=== PATIENT | female | born 1960 | race Caucasian/White ===

== ENCOUNTER → 2019-07-28 | Outpatient (CLI) | payer MEDICAID ==
[2019-07-28 11:54] LABS: Basophils % (A) 0 %; Eosinophils # (A) 0.1 k/uL (0-0.7); Eosinophils % (A) 1 %; HGB 11.8 gm/dL (11.4-16.0); Lymphocytes # (A) 2.1 k/uL (1.0-4.8); Lymphocytes % (A) 44 %; MCH 30.4 pg (25.0-35.0); MCHC 32.8 g/dL (31.0-37.0); MCV 92.7 fL (80.0-100.0); Mean Platelet Volume 7.3; Monocytes # (A) 0.3 k/uL (0-1.0); Monocytes % (A) 7 %; Neutrophils # (A) 2.2 k/uL (1.3-7.7); Neutrophils % (A) 45 %; Platelet Count 233 k/uL (150-450); RBC 3.88 m/uL (3.80-5.40); RDW 12.8 % (11.5-15.5); WBC 4.8 k/uL (3.8-10.6)
[2019-07-28 12:06] LABS: Albumin 4.3 g/dL (3.5-5.0); Calcium 10.1 mg/dL (8.4-10.2); Potassium 3.8 mmol/L (3.5-5.1)
[2019-07-28 12:08] LABS: INR 0.9 (<1.2); Partial Thromboplastin Time 23.7 sec (22.0-30.0); Prothrombin Time 9.8 sec (9.0-12.0)
[2019-07-28 12:25] LABS: Appearance,Urine Clear (Clear); Bilirubin,Urine Negative (Negative); Blood,Urine Negative (Negative); Color,Urine Yellow; Glucose,Urine (UA) Negative (Negative); Ketones,Urine Negative (Negative); Leukocyte Esterase,Urine Small (Negative); Nitrite,Urine Negative (Negative); Protein,Urine Negative (Negative); RBC,Urine <1 /hpf (0-5); Specific Gravity,Urine 1.012 (1.001-1.035); Squamous Epithelial Cell,Urine 1 /hpf (0-4); Urobilinogen,Urine <2.0 mg/dL (<2.0); WBC,Urine 5 /hpf (0-5)
--- NOTE | 2019-07-29 00:36 | XR ---
EXAMINATION TYPE: XR chest 2V DATE OF EXAM: 07/28/2019 COMPARISON: 06/18/2017 HISTORY: Preop screening TECHNIQUE: Frontal and lateral views of the chest are obtained. FINDINGS: Heart and mediastinum are within normal limits. Lungs are clear. Diaphragm is normal. Bony thorax is intact. Pulmonary vascularity is normal. IMPRESSION: No active cardiopulmonary disease. No change.
== END | disposition home or self-care (01) ==
LOC: LABPAT 10:55
PROVIDERS: ATTEND Orthopaedic Surgery Orthopaedic Surgery of the Spine
DX: Z01.818 Encounter for other preprocedural examination (principal); Z01.812 Encounter for preprocedural laboratory examination; M43.10 Spondylolisthesis, site unspecified; M54.10 Radiculopathy, site unspecified
CPT/HCPCS: 36415; 71046; 80048; 81001; 82040; 85025; 85610; 85730; 87070

== ENCOUNTER 2019-08-08 10:43 | Inpatient (IN) | payer MEDICAID ==
[2019-08-02 11:16] VITALS: BMI 43.6
[~2019-08-08 10:43] MED LIST: BACITRACIN 50,000 UNIT, POLYMYXIN B 500,000 UNIT in SODIUM CHLORIDE 0.9% IRRIGATIO 1,00... IRRIGATION ONE; DEXAMETHASONE SOD PHOSPHATE 10 MG/ML 1 ML VIAL IV ONE; MIDAZOLAM 2 MG/2 ML VIAL IV PRN; ONDANSETRON 4 MG/2 ML VIAL IVP ONE; SCOPOLAMINE 1.5MG/72HR PATCH TRANSDERM ONE
[2019-08-08] MEDS: LACTATED RINGERS 1,000 ML IV SCH (11:28)
[2019-08-08 11:53] LABS: Glucose,Whole Blood 101 mg/dL (75-99)
[2019-08-08] MEDS ORDERED: ROCURONIUM BROMIDE 10 MG/ML 10 ML VIAL IV ONE (13:07)
[2019-08-08] MEDS ORDERED: LIDOCAINE 1% INJ 10MG/ML (20 ML MDV) ONE (13:07)
[2019-08-08] MEDS ORDERED: LACTATED RINGERS 1,000 ML BAG IV ONE (13:07)
[2019-08-08] MEDS ORDERED: fentaNYL (PF) 50 MCG/ML 2 ML AMP ONE (13:07)
[2019-08-08] MEDS ORDERED: MIDAZOLAM 2 MG/2 ML VIAL ONE (13:07)
[2019-08-08] MEDS ORDERED: NEOSTIGMINE 1 MG/ML 10 ML VIAL ONE (13:07)
[2019-08-08] MEDS ORDERED: GLYCOPYRROLATE 0.2 MG/ML 2 ML VIAL ONE (13:07)
[2019-08-08] MEDS ORDERED: HEPARIN SODIUM,PORCINE 10,000 UNIT/ML 1 ML VIAL ONE (13:07)
[2019-08-08] MEDS ORDERED: FUROSEMIDE 10 MG/ML 2 ML VIAL ONE (13:07)
[2019-08-08] MEDS ORDERED: .MORPHINE SULFATE (INJ) 10 MG/ML SYRINGE ONE (13:07)
[2019-08-08] MEDS ORDERED: SUCCINYLCHOLINE CHLORIDE 100 MG/5 ML SYR IV ONE (13:07)
[2019-08-08] MEDS ORDERED: PROPOFOL 10 MG/ML 20 ML VIAL IV ONE (13:07)
[2019-08-08] MEDS ORDERED: LIDOCAINE 0.5%-EPI 1:200,000 50 ML VIAL SQ ONE (13:09)
[2019-08-08] MEDS ORDERED: GELATIN SPONGE,ABSORB (LARGE) 1 EACH SPONGE TOPICAL ONE (13:09)
[2019-08-08] MEDS ORDERED: THROMBIN (BOVINE) 5,000 UNIT VIAL TOPICAL ONE (13:09)
[2019-08-08] MEDS ORDERED: LACTATED RINGERS 1,000 ML IV ONE ×2 (15:00→17:33)
[2019-08-08] MEDS ORDERED: HYDROmorphone 1 MG/ML 1 ML SYRINGE IVP PRN (17:46)
[2019-08-08] MEDS ORDERED: BENZOCAINE/MENTHOL LOZENG 1 EACH LOZENGE MUCOUS MEM PRN (17:46)
[2019-08-08] MEDS ORDERED: MAGNESIUM HYDROXIDE 2,400 MG/10 ML CUP PO PRN (17:46)
[2019-08-08] MEDS ORDERED: ONDANSETRON 4 MG/2 ML VIAL IVP PRN (17:46)
[2019-08-08] MEDS ORDERED: HYDROcodone/APAP 5-325MG 1 EACH TAB PO PRN (17:46)
--- NOTE | 2019-08-08 17:46 | P.OP ---
Date of Procedure: 08/08/19 Preoperative Diagnosis: spinal stenosis L1-2 L2-3 L3 4, adjacent level degeneration, history of prior fusion L45 L5-S1, neurogenic claudication, lower extremity radiculopathy, low back pain Postoperative Diagnosis: same Procedure(s) Performed: minimally invasive decompression and fusion L12 L2-3 L3 4 Posterior lateral decompression and fusion L1 to L2 through L3 4 Transforaminal interbody fusion L3 4 for a 360 fusion Discectomy for decompression L3 4 Laminectomy decompression L2 S1 to L2-3 and L3 4 Removal of hardware L4 L5-S1 Evaluation of fusion L4 5 L5-S1 with findings of solid fusion Extension of fusion L1 to S1 Harvesting of allograft bone graft local Harvesting of bone marrow aspirate Use of computer navigation guidance for screw placement Anesthesia: GETA Pathology: none sent Condition: stable Description of Procedure: DESCRIPTION OF PROCEDURE(S): BRIEF OPERATIVE NOTE Preoperative Diagnosis: spinal stenosis L1-2 and L2-3 and L3 4, adjacent level degeneration L3 4, history of prior fusion L45 L5-S1, herniated nucleus pulposis L3 4, lower extremity radiculopathy, neurogenic claudication, low back pain, degenerative disc disease, Postoperative Diagnosis:same Procedure: minimally invasive decompression and fusion L12 L2-3 L3 4 Posterior lateral decompression and fusion L1 to L2 through L3 4 Transforaminal interbody fusion L3 4 for a 360 fusion Discectomy for decompression L3 4 Laminectomy decompression L2 S1 to L2-3 and L3 4 Removal of hardware L4 L5-S1 Evaluation of fusion L4 5 L5-S1 with findings of solid fusion Extension of fusion L1 to S1 Harvesting of allograft bone graft local Harvesting of bone marrow aspirate Use of computer navigation guidance for screw placement use of bone graft extenders Surgeon: Dr. Romo Saw Handle Assembler: Herve Hernandez is present throughout the entire the case persistence during positioning, dissection, exposure, visualization, and all crucial elements of the case as well as closure. Anesthesia: General anesthesiaper Dr. Johnson Estimated blood loss:approximately 300 mL with 69 given back through Cell Saver Complications: None apparent Components implanted:K2M minimally invasive Pelham pedicle screw system with use of 6.5 and 5.5 mm screws with a 150 mm jeffrey bilaterally and 1 Ralston interbody cage with 10 mL of bio4 bone graft and 30 mL of DBX bone fibers to supplement local autogenous bone graft and bone marrow aspirate Disposition: To recovery room in good stable condition. OPERATIVE INDICATIONS The patient has had long-standing issues in their lower back and lower extremities. past she had undergone decompression and fusion L4 5 L5-S1 for her spinal stenosis with lower extremity radiculopathy and neurogenic claudication. She did very well with that procedure however over the past several months she has been developing worsening symptoms at her back and lower extremities. She was found have adjacent level degeneration with evidence of disc herniation and further stenosis at L1-2 L2-3 and L3 4 above her prior fusion. Her prior fusion. Be stable and intact. Her symptoms correlated with her new changes at Tootie her lumbar spine above her prior fusion.The patient has been through conservative treatment. she is not having any prolonged benefit despite aggressive conservative treatment. We discussed various treatment options including surgery, and the patient wishes to proceed with surgery We discussed the risk, patient's alternatives and benefits of surgery including but not limited to, risk of bleeding risk of infection, risk of need for further surgery, risk of decreased, loss of motion, muscle function, malunion nonunion, hardware failure, nerve damage, paralysis, heart attack, blindness and . OPERATIVE SUMMARY After discussing all the risks, patient alternatives and benefits at length, the patient elected to proceed with surgical intervention, signed informed consent, and presented for their procedure. The patient was seen and examined in the preoperative holding area and the surgical site was marked. The patient was given antibiotics and brought to the operating room. The patient was sedated and intubated by anesthesia in standard fashion. The patient was positioned on to the operating room table in a prone position on the appropriate frame which was well-padded and well molded. We were careful to pad any bony prominences and pressure points. We were careful to maintain the patient's cervical spine and good neutral alignment and position throughout. The patient was prepped and draped in a normal standard fashion. An appropriate timeout and keystone protocol performed. We were able to proceed with the surgery. The local wound area was infiltrated with local anesthetic. we were able to identify her prior incision sites. I was able utilize C-arm guidance as well as computer-assisted navigation deviceto establish appropriate position over the pedicles bilaterally at the a ppropriate levelsat L1 2 and 3. With the appropriate levels confirmed was able to make small stab incisions over the appropriate pedicle sites bilaterallyover L1 to L3. Utilizing C-arm in his house able to establish a computer navigatedJamshidi needle over the lateral aspect of the pedicle and advanced the trocar into the pedicle being careful not to breech superiorly inferiorly medially or laterally. Position was confirmed regularly with AP and lateral images on C-arm. I was able to establish the trocar into the pedicle appropriately into the posterior aspect of the vertebral body bilaterally at the appropriate levels. This was done at each of the pedicle positions and each of the vertebraeat L1-L2 and L3 bilaterally. at L1 I was able to withdraw approximately 30 mL of bone marrow aspirate for use and supplementation of the bone graft later in the case.I was able place the guidewire into the trocar and into the vertebral body appropriately under C-arm guidance. Dissection was t aken down over the wire to the appropriate starting position for the screw placed. The appropriate length screw was chosen, threaded over the guidewire and screwed appropriately into the pedicle and vertebral body under C-arm guidance in excellent alignment and position with good bony purchase. This is done at each of the screw sites at the appropriate levelsfrom L1 to L3 bilaterally. With the screws intact I extended the incision to connect the screw hole sites on the left. I dissected down to establish access over the pars and lamina to the base of the spinous process. I was able to expose the facet joint. The capsule the facet was taken down and showed some facet arthrosis at each of the levels particularly at L3 4at the joint. I was able to use a combination of curettes and Kerrison rongeurs and a high-speed drill to take down the facet joint and do a facetectomy. Partial laminectomy was also performed. I was able get excellent foraminal decompression and central decompression with undermining across midline to perform a laminectomy centrally and contralaterally. for the access to the disc space at L3 4 and remove the jeffrey from the screw heads at L4- L5 and S1. I was able to expose over the screw heads at L4 5 and S1 and remove the Screws appropriately. The construct was checked and the screws were found to be stable and there was no motion between the screws. I decided to leave the screws intact. I was able gain further access to the transfemoral space. As able get good central decompression. The ligamentum flavum was taken down to further decompress centrally and at bilateral neural foramen. I was able to expose the disc space and visualize the traversing nerve root. Note was made of some disc protrusion at the level causing further compression of the nerve root. I was able to establish a annulotomy at the appropriate level protecting soft tissue and neural structures. Note was made of some disc desiccation at the disc. at L3 4I performed a complete discectomy with accommodation of curettes and rasps and scrapers. I was able get good endplate preparation at the disc space. I sized for the appropriate size interbody spacer protecting the soft tissue and neural structures. The wound was copiously irrigated and suctioned dry. There is no evidence of any dural tear or leak. I was able to pack the disc space with local autogenous bone graft as well as a small amount of bone graft which was also placed into the interbody cage itself. Protecting the soft tissue structures and neural structures I was able place the interbody cage in good alignment and good position with good fit and fill at the interbody space. His issues was confirmed with C-arm guidance.this was done at L3 4. I did not feel we had to perform a interbody fusion at L1-2 or L2-3 but he decompression with posterior lateral fusion would be appropriate. I performed a laminotomy at L1-2 as well as L2-3 to get good central decompression at each level. There is no evidence of any dural tear or leak. Good hemostasis maintained. There is no evidence of any dural tear or leak. The wound was irrigated and suctioned dry. With the hardware intact, intraoperative C-arm imaging was again taken which showed good alignment and position of the hardware at the appropriate levelsfrom L1 to S1 bilaterally. I remove the Screws on the bilateral sides to expose the screw heads from L1 to S1 bilaterally.We were then able to measure, contour and place the rods and appropriate hardware bilaterally. I was able to place capcrews, tighten them down, and torque them with the torque screwdriver appropriately. With this intact I was able to place the local autogenous bone graft with additional bone graft enhancer as necessary into the posterior lateral gutters over the decorticated transverse processesfrom L1 to L4. The remainder of the bone graft was placed over the facet joint on the contralateral side after taking down the facet joint capsule. With the bone graft intact, a stable construct, and good decompression at the appropriate levels, we were able to proceed with closure. Good hemostasis was maintained. There is no evidence of dural tear or leak. The fascia was closed for a watertight closure. he subcuticular tissue was closed with absorbable suture. The wound was cleaned and dried and dressed with the appropriate dressing. The drapes were broken down. The patient was gently rolled back onto their hospital bed being careful to maintain their cervical spine and good neutral alignment and position. They were woken up by anesthesia, extubated, and brought to the recovery room in good stable condition. The patient will be admitted to the hospital for appropriate postoperative care, medical management and monitoring. We will continue to follow them closely about the postoperative course.
[2019-08-08] MEDS ORDERED: BENZONATATE 100 MG CAP PO PRN (17:49)
[2019-08-08] MEDS ORDERED: ALBUTEROL NEBULIZED 2.5 MG/3 ML INHALATION PRN (17:49)
[2019-08-08] MEDS ORDERED: traMADol 50 MG TAB PO PRN (17:49)
[2019-08-08] MEDS ORDERED: ALBUTEROL INHALER 60 PUFF/8 GM INHALER INHALATION PRN (17:49)
[2019-08-08] MEDS: HYDROmorphone 0.5 MG/0.5 ML SYRINGE IVP PRN ×3 (18:07→23:17)
--- NOTE | 2019-08-08 20:39 | P.CONS ---
History of Present Illness - Reason for Consult Consult date: 08/08/19 post operative medical management Requesting physician: Jose Romo - Chief Complaint scheduled lower back surgery for spinal decompression and fusion - History of Present Illness 59 year old female with history of mild intermittent asthma, hypertension , OA, GERD , and Ig G deficiency patient comes in today for scheduled lower back surgery due to chronic low back pain refractory to conservative measures. patient tolerated procedure well, she is seen in the immediate post operative period , no observed post operative complications. she reports some lower back discomfort, but otherwise denies any chest pain or trouble breathing,. she has not had anything to eat yet, but does not feel like eating at this time due to nausea. she has a monterroso cath in place. family at bed side with her. she currently feels tired and wants to sleep. Review of Systems Pertinent positives as noted in HPI. All other systems were reviewed and are negative Past Medical History Past Medical History: Asthma, GERD/Reflux, Hypertension, Osteoarthritis (OA), Pneumonia, Skin Disorder Additional Past Medical History / Comment(s): varicose veins, sponylolisthesis, degenerative disks, herniated disks, rosacea, immunoglobulin G deficient-IIVIG infuision, hx low iron-has had iron infusion every other month, History of Any Multi-Drug Resistant Organisms: None Reported Past Surgical History: Back Surgery, Breast Surgery, Section, Cholecystectomy, Tonsillectomy Additional Past Surgical History / Comment(s): natasha breast biopsy,has surgery to remove blood clot from breast after a biopsy, epidural pain injections, lower lumbar fusion, colonoscopy, EGD, oral surgery, Past Anesthesia/Blood Transfusion Reactions: Previous Problems w/ Anesthesia, Postoperative Nausea & Vomiting (PONV) Additional Past Anesthesia/Blood Transfusion Reaction / Comm: was "very loopy" after cholecystectomy Smoking Status: Never smoker - Past Family History Mother Family Medical History: Cancer Additional Family Medical History / Comment(s): ovarian/breast Father Family Medical History: Cancer Additional Family Medical History / Comment(s): skin Son(s) Family Medical History: Cancer Additional Family Medical History / Comment(s): Hodgkins lymphoma Sister(s) Family Medical History: Cancer Additional Family Medical History / Comment(s): childhood Medications and Allergies Home Medications Medication Instructions Recorded Confirmed Type Albuterol Inhaler [Ventolin Hfa 1 - 2 puff INHALATION RT-Q6H PRN 06/23/17 08/08/19 History Inhaler] Albuterol Nebulized [Ventolin 2.5 mg INHALATION RT-Q6H PRN 06/23/17 08/08/19 History Nebulized] Mateo/D3/Mag11/Zinc/Senior Systems Engineer/Vishnu/Bor 1 tab PO HS 06/23/17 08/08/19 History [Caltrate 600+D Plus Tablet] Cetirizine HCl [Zyrtec] 10 mg PO DAILY 06/23/17 08/08/19 History Coratin 1 tab PO BID 06/23/17 08/08/19 History Fluticasone/Salmeterol [Advair 1 puff INHALATION BID 06/23/17 08/08/19 History 250-50 Diskus] Gabapentin [Neurontin] 600 mg PO HS 06/23/17 08/08/19 History Ibuprofen [Motrin] 800 mg PO Q6H PRN 06/23/17 08/08/19 History Lansoprazole 30 mg PO BID 06/23/17 08/08/19 History Lisinopril-Hctz 10-12.5 mg 1 tab PO QAM 06/23/17 08/08/19 History [Zestoretic 10-12.5] Multivitamins, Thera [Multivitamin 1 tab PO DAILY 06/23/17 08/08/19 History (formulary)] Sertraline [Zoloft] 100 mg PO HS 06/23/17 08/08/19 History traMADol HCL [Ultram] 50 mg PO BID PRN 06/23/17 08/08/19 History Benzonatate [Tessalon Perles] 200 mg PO TID PRN 08/02/19 08/08/19 History Orthovisc Injections +Steroids 1 injection IJ DIRECTED 08/02/19 08/08/19 History Allergies Allergy/AdvReac Type Severity Reaction Status Date / Time adhesive tape Allergy "rips skin" Verified 08/08/19 11:03 Penicillins Allergy Rash/Hives Verified 08/08/19 11:03 tetracycline Allergy Rash/Hives Verified 08/08/19 11:03 bandaid Allergy peels skin Uncoded 08/08/19 11:03 off Physical Exam Vitals: Vital Signs Temp Pulse Resp BP Pulse Ox 08/08/19 19:03 59 L 18 127/62 100 08/08/19 18:45 65 18 124/65 100 08/08/19 18:30 70 18 122/59 100 08/08/19 18:15 55 L 18 120/60 100 08/08/19 18:00 98 F 71 18 135/62 96 08/08/19 11:17 98.4 F 56 L 19 156/73 96 Intake and Output 08/08/19 08/08/19 08/08/19 06:59 14:59 22:59 Intake Total 1051 1300 Output Total 850 Balance 1051 450 Intake: IV 1051 1300 Output: Urine 650 Estimated Blood Loss 200 Other: Weight 113.398 kg Constitutional: No acute distress, conversant, pleasant, sleepy easily arousable Eyes: Anicteric sclerae, moist conjunctiva, Pupils equal round reactive to light ENMT: NC/AT Oropharynx clear, no erythema, exudates Neck: Supple, FROM, no masses, or JVD No carotid bruits No thyromegaly Lungs: Clear to auscultation Clear to percussion Normal respiratory effort, no accessory muscle use Cardiovascular: Heart regular in rate and rhythm, No murmurs, gallops, or rubs No peripheral edema Abdominal: Soft Nontender, no guarding, rebound or rigidity Abdomen moving with respiration Normoactive bowel sounds No hepatomegaly, No splenomegaly No palpable mass No abdominal wall hernia noted Skin: Normal temperature, tone, texture, turgor No induration No subcutaneous nodules No rash, lesions No ulcers Extremities: No digital cyanosis No clubbing Pedal pulses intact and symmetrical Radial pulses intact and symmetrical No calf tenderness Psychiatric: Alert and oriented to person, place and time Appropriate affect fair judgment Neuro limited exam for muscle strength patient feels tired postoperatively and reporting some low back discomfort wasn't willing to test the strength of her lower legs due to fear of pain. She is moving her upper extremities freely Sensation to light touch grossly present throughout Cranial nerves II-XII grossly intact No focal sensory deficits Lymphatics: no palpable cervical or supraclavicular , or inguinal lymph nodes Monterroso catheter in place SCDs bilateral lower extremities Results Labs: Abnormal Lab Results - Last 24 Hours (Table) 08/08/19 Range/Units 11:34 POC Glucose (mg/dL) 101 H (75-99) mg/dL Assessment and Plan Assessment: 59-year-old female with history of mild intermittent asthma,hypertension GERD, also arthritis, medical billing G deficiency Comes in for scheduled low back surgery tolerated procedure well denies any chest pain or trouble breathing in the immediate postoperative period Medicine consultative to assist in medical managementpostoperatively Plan: chronic low back pain, s/p lumbar spine decompression POD #zero tolerated procedure well management per orthopedics mild intermittent asthma, well controlled resume inhalers PRN duoneb encouraged to use incentive spirometry hypertension , controlled resume home meds GERD PPI Ig G deficiency OP follow up check CBC and BMP in AM monitor vital signs breathing treatment as needed incentive spirometry encourage PO intake DC monterroso cath in AM , monitor urine output pain control DVT PPX, mechanical due to spinal surgery Thank you for allowing us to participate in the care of this patient. Do not hesitate to contact us with questions. Someone can be reached from the [facility] hospitalist group at all hours of the day at [phone].
[2019-08-08] MEDS: GABAPENTIN 300 MG CAP PO SCH (21:06)
[2019-08-08] MEDS: PANTOPRAZOLE 40 MG TABLET PO SCH (21:07)
[2019-08-08] MEDS: SERTRALINE 100 MG TAB PO SCH (21:07)
[2019-08-08] MEDS: HYDROcodone/APAP 5-325MG 1 EACH TAB PO PRN (21:08)
[2019-08-08] MEDS: CALCIUM CARB-MAG CARB-FOLIC 1 EACH TAB PO SCH (21:16)
[2019-08-09] MEDS: SODIUM CHLORIDE 0.9% 1,000 ML IV SCH ×2 (00:17→07:55)
[2019-08-09] MEDS: SYMBICORT 80-4.5 MCG INHALER INHALATION SCH ×3 (02:03→20:09)
[2019-08-09] MEDS: HYDROcodone/APAP 5-325MG 1 EACH TAB PO PRN ×6 (02:32→23:17)
[2019-08-09] MEDS: HYDROmorphone 0.5 MG/0.5 ML SYRINGE IVP PRN ×5 (04:04→21:33)
[2019-08-09] MEDS: LACTATED RINGERS 1,000 ML IV SCH (04:37)
--- NOTE | 2019-08-09 07:07 | FL ---
EXAMINATION TYPE: FL guidance operating room, XR lumbar spine 2 or 3V DATE OF EXAM: 08/08/2019 CLINICAL HISTORY: Low back pain. Fluoroscopic documentation during minimally invasive lumbar fusion TECHNIQUE: Fluoroscopy. COMPARISON: None. FINDINGS: Fluoroscopic guidance was provided during pain relief procedure performed by Dr. Romo. A total of 40 seconds of fluoroscopic time was utilized during the procedure and then spot images are acquired. Images acquired shows heart replacement of the lumbar spine at multiple levels. IMPRESSION: As Above.
[2019-08-09 07:24] LABS: Basophils % (A) 0 %; Eosinophils # (A) 0.1 k/uL (0-0.7); Eosinophils % (A) 1 %; HCT 34.6 % (34.0-46.0); HGB 11.2 gm/dL (11.4-16.0); Lymphocytes # (A) 0.9 k/uL (1.0-4.8); Lymphocytes % (A) 10 %; MCH 30.9 pg (25.0-35.0); MCHC 32.5 g/dL (31.0-37.0); MCV 94.9 fL (80.0-100.0); Mean Platelet Volume 7.6; Monocytes # (A) 0.6 k/uL (0-1.0); Monocytes % (A) 6 %; Neutrophils # (A) 7.8 k/uL (1.3-7.7); Neutrophils % (A) 83 %; Platelet Count 250 k/uL (150-450); RBC 3.64 m/uL (3.80-5.40); RDW 13.2 % (11.5-15.5); WBC 9.5 k/uL (3.8-10.6)
[2019-08-09 07:34] LABS: African American GFR (CKD) >90 (>60 ml/min/1.73 sqM); Anion Gap 6 mmol/L; Blood Urea Nitrogen 16 mg/dL (7-17); Calcium 8.6 mg/dL (8.4-10.2); Carbon Dioxide 28 mmol/L (22-30); Chloride 101 mmol/L (98-107); Glucose 127 mg/dL (74-99); Non-African American GFR(CKD) 84 (>60 ml/min/1.73 sqM); Potassium 4.1 mmol/L (3.5-5.1); Sodium 135 mmol/L (137-145)
[2019-08-09] MEDS: LISINOPRIL-HCTZ 10-12.5 MG 1 EACH TAB PO SCH (07:54)
[2019-08-09] MEDS: SENNOSIDES-DOCUSATE SODIUM 1 EACH TAB PO SCH (07:56)
[2019-08-09] MEDS: LORATADINE 10 MG TAB PO SCH (07:56)
[2019-08-09] MEDS: PANTOPRAZOLE 40 MG TABLET PO SCH ×2 (07:56→17:36)
[2019-08-09] MEDS: MULTIVITAMINS, THERA 1 EACH TAB PO SCH (07:56)
--- NOTE | 2019-08-09 10:54 | P.PN ---
Progress Note - Text Progress Note Date: 08/09/19 Postoperative day #1 Patient is seen and examined today at bedside. The patient has some pain around the surgical site as expected. She has been able to be up out of bed to a chair this morning for an hour. She still feels her legs are doing well. Pain is being controlled with medication, though there is still regular pain in her back around the surgery site as expected. Physical Exam Afebrile with stable vital signs Abdomen is soft nontender. Chest has good excursion deep and space expiration The incision site is clean dry and intact. No erythema there is no purulence. There was some drainage into her dressing at her lumbar spine overnight there is no purulence. She has sustained dorsiflexion plantar flexion and EHL intact. Extremities have not had neurologic change from prior to surgery. Calves and thighs were soft nontender without evidence of DVT. Assessment/Plan Postoperative day #1 status post decompression and fusion L1-2 L2-3 and L3 4 for adjacent level degeneration spinal stenosis with prior fusion from L4 to S1 Patient is progressing as expected from the surgery. She has been able to get up out of bed which is encouraging. She is tolerating her diet adequately. We will continue to increase the patient's mobilization with therapy. Tomorrow we can take down the dressing and do a new dry dressing change. We will continue pain control with oral or IV medications. We'll continue to follow patient closely.
[2019-08-09] MEDS ORDERED: CALCIUM CARBONATE 500 MG CHEWABLE PO PRN (12:11)
[2019-08-09] MEDS: GABAPENTIN 300 MG CAP PO SCH (20:13)
[2019-08-09] MEDS: SERTRALINE 100 MG TAB PO SCH (20:13)
[2019-08-09] MEDS: CALCIUM CARB-MAG CARB-FOLIC 1 EACH TAB PO SCH (20:13)
--- NOTE | 2019-08-09 20:43 | P.PN ---
Subjective Progress Note Date: 08/09/19 (delayed charting seen at ) Principal diagnosis: back pain Patient is a 59-year-old female past medical history of mild intermittent asthma, hypertension, osteoarthritis, GERD, and IgG deficiency who presented for elective lumbar laminectomy, decompression, and fusion. She underwent procedure on 08/08 and tolerated this well. Patient seen and examined at bedside. She complains of some worsening of her chronic acid reflux symptoms. She denies any overt chest pain or shortness of breath. Pain is currently controlled that she did have significant amounts of pain on standing. Objective - Vital Signs Vital signs: Vital Signs Temp 98.7 F 08/09/19 19:59 Pulse 70 08/09/19 19:59 Resp 16 08/09/19 19:59 BP 131/55 08/09/19 19:59 Pulse Ox 96 08/09/19 19:59 Intake & Output 08/09/19 08/09/19 08/10/19 06:59 18:59 06:59 Intake Total 210 Output Total 1200 Balance 210 -1200 Weight 113.398 kg Intake: Intake, IV Titration 210 Amount Sodium Chloride 0.9% 1, 210 000 ml @ 75 mls/hr IV . [id number] Rx#:[id number] Output: Urine 1000 Stool 200 Other: Voiding Method Indwelling Catheter Indwelling Catheter # Voids 600 - Exam General: non toxic, no distress, appears at stated age Derm: warm, dry Head: atraumatic, normocephalic, symmetric Eyes: EOMI, no lid lag, anicteric sclera Cardiovascular: S1S2 reg, no murmur, positive posterior tibial pulse bilateral, Lungs: Decreased breath sounds bilateral, no rhonchi, no rales , no accessory muscle use Abdominal: soft, nontender to palpation, no guarding, no appreciable organomegaly Ext: no gross muscle atrophy, no edema, no contractures Psych: Alert, oriented, appropriate affect - Labs CBC & Chem 7: 08/09/19 07:08 08/09/19 07:08 Labs: Abnormal Lab Results - Last 24 Hours (Table) 08/09/19 08/09/19 Range/Units 07:08 07:08 RBC 3.64 L (3.80-5.40) m/uL Hgb 11.2 L (11.4-16.0) gm/dL Neutrophils # 7.8 H (1.3-7.7) k/uL Lymphocytes # 0.9 L (1.0-4.8) k/uL Sodium 135 L (137-145) mmol/L Glucose 127 H (74-99) mg/dL Assessment and Plan Assessment: Patient is a 59 yo CF s/p decompression and fusion of the lumbar spine. Management per ortho spine. Mild intermittent asthma -Continue with Symbicort and as needed albuterol Hypertension -controlled -Continue with lisinopril, hydrochlorothiazide -Follow blood pressures GERD -Continue twice a day PPI -Tums added IgG deficiency -Outpatient follow-up
[2019-08-10] MEDS: HYDROmorphone 0.5 MG/0.5 ML SYRINGE IVP PRN ×5 (01:54→20:04)
[2019-08-10] MEDS: SODIUM CHLORIDE 0.9% 1,000 ML IV SCH ×3 (02:55→20:04)
[2019-08-10] MEDS: LACTATED RINGERS 1,000 ML IV SCH (04:47)
[2019-08-10] MEDS: HYDROcodone/APAP 5-325MG 1 EACH TAB PO PRN ×5 (05:04→22:03)
[2019-08-10] MEDS: MULTIVITAMINS, THERA 1 EACH TAB PO SCH (07:25)
[2019-08-10] MEDS: SENNOSIDES-DOCUSATE SODIUM 1 EACH TAB PO SCH (07:25)
[2019-08-10] MEDS: PANTOPRAZOLE 40 MG TABLET PO SCH ×2 (07:25→18:02)
[2019-08-10] MEDS: LORATADINE 10 MG TAB PO SCH (07:25)
[2019-08-10] MEDS: LISINOPRIL-HCTZ 10-12.5 MG 1 EACH TAB PO SCH (07:25)
[2019-08-10 08:18] LABS: African American GFR (CKD) >90 (>60 ml/min/1.73 sqM); Anion Gap 6 mmol/L; Blood Urea Nitrogen 9 mg/dL (7-17); Calcium 8.5 mg/dL (8.4-10.2); Carbon Dioxide 28 mmol/L (22-30); Chloride 102 mmol/L (98-107); Glucose 101 mg/dL (74-99); Non-African American GFR(CKD) >90 (>60 ml/min/1.73 sqM); Potassium 3.8 mmol/L (3.5-5.1); Sodium 136 mmol/L (137-145)
[2019-08-10 08:20] LABS: HCT 32.9 % (34.0-46.0); HGB 10.9 gm/dL (11.4-16.0); MCH 31.3 pg (25.0-35.0); MCHC 33.2 g/dL (31.0-37.0); MCV 94.3 fL (80.0-100.0); Mean Platelet Volume 7.8; Platelet Count 235 k/uL (150-450); RBC 3.49 m/uL (3.80-5.40)
[2019-08-10] MEDS: SYMBICORT 80-4.5 MCG INHALER INHALATION SCH ×2 (08:47→19:04)
--- NOTE | 2019-08-10 09:09 | P.PN ---
Progress Note - Text Progress Note Date: 08/10/19 Orthopedic Spine: History of present illness: Patient is a pleasant 59-year-old female who is seen and examined at the bedside following posterior lateral decompression and fusion performed Tuesday. Patient states they are doing ok postsurgically. She was able to transfer to a bedside chair for approximately one hour with assistance of physical therapy yesterday. Currently does not complain of nausea, vomiting, fever, or chills. Patient states pain has been adequately controlled. Patient is eating and voiding freely without difficulty. Carvalho catheter remains intact. She is hoping to increase mobility today. She is hoping to improve was next couple days for discharge home. Patient has a past medical history of hypertension, hyperlipidemia, unsteady gait, and previous lumbar fusion. Physical Exam Lumbar Fusion: Status post surgical day number 2 Patient is awake, alert, and oriented 3 Vital signs stable Good chest excursion with deep inspiration and expiration Dorsiflexion, plantarflexion, and extensor hallucis longus positive sustained bilaterally No signs or symptoms of DVT; no calf pain; pneumatic cuffs intact bilateral lower extremities Dressing is intact; no erythema, purulence, or signs of infection Dressing is removed during physical examination; dressing is reapplied with nonstick Telfa and Tegaderm Slow serous drainage from the right inferior incision site Neurovascularly intact bilaterally lower extremities Assessment: Status post minimally invasive posterior lateral decompression and fusion L1-2, L2-3, and L3-4 with extension to previous hardware at L4-5 and L5-S1 with placement of transforaminal lumbar interbody fusion L3-4 Low back pain L3-4 Adjacent level degenerative disc disease and herniated disc pulses Spinal canal stenosis L1-2, L2-3, and L3-4 Lumbar degenerative disc disease Neurogenic claudication Hypertension Hyperlipidemia Unsteady gait History of previous lumbar fusion Plan: 1. Ambulate as tolerated; work with Physical Therapy to increase mobilization 2. Continue pain control with IV and oral medications; we will begin to wean patient off of IV narcotic medications in anticipation for discharge home over the next 2-3 days MAPS has been reviewed today, 08/10/2019, with an Overall Overdose Risk Score of 200 and a narcotic score of 201. An "Opiod Start Talking" Form has been signed and placed in the patient's chart. A prescription has been written for [place] 5 mg/25 mg 1-2 tabs every 6 hours as needed for pain, dispensed #56. Prescription is sent to the [facility] pharmacy here [facility]. Patient should avoid anti-inflammatory medication of the next 6 weeks postoperatively. Patient should discontinue tramadol medication as previously prescribed. 3. Dressing removed during physical examination and replaced with nonstick Telfa and Tegaderm 4. Medical management can continue to manage patient for patient's other medical issues 5. We will continue to follow the patient closely; if the patient continues to improve, we will plan for discharge home over the next 2-3 days 6. Patient can follow-up with Herve Stiles PA-C or Dr. Darrick Romo at [facility] in 2-3 weeks following discharge
--- NOTE | 2019-08-10 12:15 | P.PN ---
Subjective Progress Note Date: 08/10/19 Principal diagnosis: Back pain Doing well. Still having back pain, getting pain meds. No BM for 2 days, but patient states that she has not been eating much. Objective - Vital Signs Vital signs: Vital Signs Temp 98.6 F 08/10/19 07:00 Pulse 69 08/10/19 07:00 Resp 12 08/10/19 07:00 BP 139/67 08/10/19 07:00 Pulse Ox 92 L 08/10/19 07:00 Intake & Output 08/09/19 08/10/19 08/10/19 18:59 06:59 18:59 Intake Total 220 Output Total 1200 1275 Balance -1200 -1055 Intake: Intake, IV Titration 220 Amount Sodium Chloride 0.9% 1, 220 000 ml @ 75 mls/hr IV . [id number] Rx#:[id number] Output: Urine 1000 1200 Stool 200 75 Other: Voiding Method Indwelling Catheter Indwelling Catheter Indwelling Catheter - Exam General: non toxic, no distress, appears at stated age Derm: warm, dry Head: atraumatic, normocephalic, symmetric Eyes: EOMI, no lid lag, anicteric sclera Cardiovascular: S1S2 reg, no murmur, positive posterior tibial pulse bilateral, Lungs: Decreased breath sounds bilateral, no rhonchi, no rales , no accessory muscle use Abdominal: soft, nontender to palpation, no guarding, no appreciable organomegaly Ext: no gross muscle atrophy, no edema, no contractures Psych: Alert, oriented, appropriate affect - Labs CBC & Chem 7: 08/10/19 07:21 08/10/19 07:21 Labs: Abnormal Lab Results - Last 24 Hours (Table) 08/10/19 08/10/19 Range/Units 07:21 07:21 RBC 3.49 L (3.80-5.40) m/uL Hgb 10.9 L (11.4-16.0) gm/dL Hct 32.9 L (34.0-46.0) % Sodium 136 L (137-145) mmol/L Glucose 101 H (74-99) mg/dL Assessment and Plan Plan: S/P lumbar fustion Management per surgery Pain control per surgery Constipation Likely opiates induced Getting senakot Add miralax in am if no response. Mild intermittent asthma -Stable -Continue with Symbicort and as needed albuterol Hypertension -controlled -Continue with lisinopril, hydrochlorothiazide -Follow blood pressures GERD -Continue twice a day PPI -Tums added IgG deficiency -Outpatient follow-up
[2019-08-10] MEDS: GABAPENTIN 300 MG CAP PO SCH (20:04)
[2019-08-10] MEDS: CALCIUM CARB-MAG CARB-FOLIC 1 EACH TAB PO SCH (21:01)
[2019-08-10] MEDS: SERTRALINE 100 MG TAB PO SCH (21:01)
[2019-08-11] MEDS: HYDROmorphone 0.5 MG/0.5 ML SYRINGE IVP PRN ×5 (00:04→23:24)
[2019-08-11] MEDS: LACTATED RINGERS 1,000 ML IV SCH (01:03)
[2019-08-11] MEDS: HYDROcodone/APAP 5-325MG 1 EACH TAB PO PRN ×5 (03:18→21:28)
[2019-08-11] MEDS: SYMBICORT 80-4.5 MCG INHALER INHALATION SCH ×2 (07:41→18:48)
[2019-08-11] MEDS: LISINOPRIL-HCTZ 10-12.5 MG 1 EACH TAB PO SCH (09:57)
[2019-08-11] MEDS: LORATADINE 10 MG TAB PO SCH (09:57)
[2019-08-11] MEDS: MULTIVITAMINS, THERA 1 EACH TAB PO SCH (09:57)
[2019-08-11] MEDS: SENNOSIDES-DOCUSATE SODIUM 1 EACH TAB PO SCH (09:57)
[2019-08-11] MEDS: PANTOPRAZOLE 40 MG TABLET PO SCH ×2 (09:57→18:08)
--- NOTE | 2019-08-11 10:55 | P.PN ---
Progress Note - Text Progress Note Date: 08/11/19 Postoperative day #3 Patient is seen and examined today at bedside. She is sitting up in a chair and she has been very happy with her progress thus far. She has actually interiors that she was so happy that she was able to walk around standing upright without pain as she had prior to her surgery. The patient has some pain around the surgical site as expected. Pain is being controlled with medication. Physical Exam Afebrile with stable vital signs Abdomen is soft nontender. Chest has good excursion deep and space expiration The incision site is clean dry and intact. No erythema there is no purulence. Extremities have not had neurologic change from prior to surgery. She has susta ined dorsal flexion plantar flexion and EHL intact Calves and thighs were soft nontender without evidence of DVT. Assessment/Plan Postoperative day #3 status post decompression fusion L1-2 L2-3 and L3 4 with extension of her fusion from L4 to S1 for her spinal stenosis with disc degeneration and low back pain Patient is progressing as expected from the surgery. She has made excellent progress with her mobility and is starting to get out of bed on her own. She is passing gas and feels that she'll have bowel movement today We will continue to increase the patient's mobilization with therapy. We will continue pain control with oral or IV medications. We'll continue to follow patient closely. She thinks that she may be comfortable for discharge home tomorrow
--- NOTE | 2019-08-11 11:38 | P.PN ---
Subjective Progress Note Date: 08/11/19 Principal diagnosis: Back pain Patient is doing well, she is feeling that she will have a bowel movement soon. No chest pain or shortness of breath. Pain in the back is controlled with pain medications. Objective - Vital Signs Vital signs: Vital Signs Temp 98.5 F 08/11/19 07:00 Pulse 55 L 08/11/19 07:00 Resp 16 08/11/19 07:00 BP 139/65 08/11/19 07:00 Pulse Ox 93 L 08/11/19 07:00 Intake & Output 08/10/19 08/11/19 08/11/19 18:59 06:59 18:59 Intake Total 1200 Output Total 1999 1050 Balance -1999 150 Intake: Intake, IV Titration 1200 Amount Sodium Chloride 0.9% 1, 1200 000 ml @ 75 mls/hr IV . [id number] Rx#:[id number] Output: Urine 1999 1050 Uretheral (Carvalho) 1000 Other: Voiding Method Indwelling Catheter # Voids 1 1 - Exam General: non toxic, no distress, appears at stated age Derm: warm, dry Head: atraumatic, normocephalic, symmetric Eyes: EOMI, no lid lag, anicteric sclera Cardiovascular: S1S2 reg, no murmur, positive posterior tibial pulse bilateral, Lungs: Decreased breath sounds bilateral, no rhonchi, no rales , no accessory muscle use Abdominal: soft, nontender to palpation, no guarding, no appreciable organomegaly Ext: no gross muscle atrophy, no edema, no contractures Psych: Alert, oriented, appropriate affect - Labs CBC & Chem 7: 08/10/19 07:21 08/10/19 07:21 Assessment and Plan Plan: S/P lumbar fustion Management per surgery Pain control per surgery Constipation Likely opiates induced Getting senakot Add miralax today if no response, discussed with RN. Mild intermittent asthma -Stable -Continue with Symbicort and as needed albuterol Hypertension -controlled -Continue with lisinopril, hydrochlorothiazide -Follow blood pressures GERD -Continue twice a day PPI -Tums added IgG deficiency -Outpatient follow-up
[2019-08-11] MEDS: SODIUM CHLORIDE 0.9% 1,000 ML IV SCH (13:55)
[2019-08-11] MEDS: POLYETHYLENE GLYCOL 3350 17 GM POWD.PACK PO PRN (18:21)
[2019-08-11] MEDS: GABAPENTIN 300 MG CAP PO SCH (21:28)
[2019-08-11] MEDS: CALCIUM CARB-MAG CARB-FOLIC 1 EACH TAB PO SCH (21:28)
[2019-08-11] MEDS: SERTRALINE 100 MG TAB PO SCH (21:28)
[2019-08-12] MEDS: HYDROcodone/APAP 5-325MG 1 EACH TAB PO PRN ×2 (02:14→06:01)
[2019-08-12] MEDS: SODIUM CHLORIDE 0.9% 1,000 ML IV SCH ×2 (02:40→14:46)
[2019-08-12] MEDS: LACTATED RINGERS 1,000 ML IV SCH (03:53)
[2019-08-12] MEDS: SENNOSIDES-DOCUSATE SODIUM 1 EACH TAB PO SCH (07:39)
[2019-08-12] MEDS: MULTIVITAMINS, THERA 1 EACH TAB PO SCH (07:39)
[2019-08-12] MEDS: HYDROmorphone 0.5 MG/0.5 ML SYRINGE IVP PRN (07:39)
[2019-08-12] MEDS: PANTOPRAZOLE 40 MG TABLET PO SCH ×2 (07:39→17:11)
[2019-08-12] MEDS: LORATADINE 10 MG TAB PO SCH (07:39)
[2019-08-12] MEDS: POLYETHYLENE GLYCOL 3350 17 GM POWD.PACK PO PRN (07:47)
[2019-08-12] MEDS: SYMBICORT 80-4.5 MCG INHALER INHALATION SCH ×2 (09:01→20:26)
[2019-08-12] MEDS: LISINOPRIL-HCTZ 10-12.5 MG 1 EACH TAB PO SCH (09:14)
[2019-08-12] MEDS: HYDROcodone/APAP 7.5-325MG 1 EACH TAB PO PRN ×3 (10:52→19:47)
--- NOTE | 2019-08-12 11:25 | P.PN ---
<GreshamDayron Christa - Last Filed: 08/12/19 11:15> Subjective Progress Note Date: 08/12/19 Principal diagnosis: Status post decompression fusion L1-2 L2-3 and L3-4 with extension of her fusion from L4 to S1 Patient is seen at bedside this morning. She is postop day #4 from L1-L4 decompression with extension of her fusion from L4 to S1. She has pain at the surgical site and spasms as expected but denies any new complaints. She denies numbness, tingling or calf pain. Review of systems is negative for fever, chills, chest pain, shortness of breath or other. Objective - Vital Signs Vital signs: Vital Signs Temp 98.5 F 08/12/19 07:18 Pulse 60 08/12/19 07:18 Resp 16 08/12/19 07:18 BP 121/78 08/12/19 07:18 Pulse Ox 94 L 08/12/19 07:18 Intake & Output 08/11/19 08/12/19 08/12/19 18:59 06:59 18:59 Intake Total 580 200 Balance 580 200 Intake: Oral 580 200 Other: Voiding Method Indwelling Catheter # Voids 2 1 - Exam Afebrile with stable vital signs Abdomen is soft nontender. Chest has good excursion deep and space expiration The incision bandage intact. No erythema there is no purulence. Extremities have not had neurologic change from prior to surgery. She has sustained dorsal flexion plantar flexion and EHL intact Calves and thighs were soft nontender without evidence of DVT. - Constitutional General appearance: Present: no acute distress - Labs CBC & Chem 7: 08/10/19 07:21 08/10/19 07:21 Assessment and Plan (1) Status post lumbar spinal fusion Narrative/Plan: She will continue with routine postop orthopedic protocol including pain management, wound care, PT, DVT prophylaxis and medical management. Will increase oral pain med and add flexeril for spasms. Encouraged discontinue IV pain med. Expect that she will discharge tomorrow. Current Visit: Yes Status: Acute Priority: Medium Code(s): Z98.1 - ARTHRODESIS STATUS SNOMED Code(s): 16272059253530 Time with Patient: Less than 30 <Jose Romo - Last Filed: 08/12/19 12:09> Objective - Vital Signs Vital signs: Vital Signs Temp 98.5 F 08/12/19 07:18 Pulse 60 08/12/19 07:18 Resp 16 08/12/19 07:18 BP 121/78 08/12/19 07:18 Pulse Ox 94 L 08/12/19 07:18 Intake & Output 08/11/19 08/12/19 08/12/19 18:59 06:59 18:59 Intake Total 580 200 Balance 580 200 Intake: Oral 580 200 Other: Voiding Method Indwelling Catheter # Voids 2 1 1 - Labs CBC & Chem 7: 08/10/19 07:21 08/10/19 07:21 Assessment and Plan Plan: The patient is seen and examined. I discussed case with antibiotic RPA and I am in agreement with his dictation above. The patient had a little bit of a rough morning but is still able to mobilize. She is with physical therapy in her room and is moving around adequately. She is still taking IV pain medications very regularly and has not been able to go through a day without IV medication. We will try to decrease the IV medication convert her over to full oral medications as well as try to alleviate some of her spasm with Flexeril. If she is able to make good progress think she'll be okay for discharge home tomorrow.
[2019-08-12] MEDS: CYCLOBENZAPRINE 5 MG TAB PO PRN ×2 (14:40→23:06)
[2019-08-12] MEDS: GABAPENTIN 300 MG CAP PO SCH (21:02)
[2019-08-12] MEDS: SERTRALINE 100 MG TAB PO SCH (21:02)
[2019-08-12] MEDS: CALCIUM CARB-MAG CARB-FOLIC 1 EACH TAB PO SCH (21:02)
[2019-08-13] MEDS: HYDROcodone/APAP 7.5-325MG 1 EACH TAB PO PRN ×4 (00:15→13:40)
[2019-08-13] MEDS: SODIUM CHLORIDE 0.9% 1,000 ML IV SCH (03:19)
[2019-08-13] MEDS: LACTATED RINGERS 1,000 ML IV SCH (03:19)
[2019-08-13] MEDS: LISINOPRIL-HCTZ 10-12.5 MG 1 EACH TAB PO SCH (07:53)
[2019-08-13] MEDS: SENNOSIDES-DOCUSATE SODIUM 1 EACH TAB PO SCH (07:53)
[2019-08-13] MEDS: CYCLOBENZAPRINE 5 MG TAB PO PRN ×2 (07:53→15:33)
[2019-08-13] MEDS: MULTIVITAMINS, THERA 1 EACH TAB PO SCH (07:53)
[2019-08-13] MEDS: PANTOPRAZOLE 40 MG TABLET PO SCH (07:53)
[2019-08-13] MEDS: LORATADINE 10 MG TAB PO SCH (07:54)
[2019-08-13] MEDS: SYMBICORT 80-4.5 MCG INHALER INHALATION SCH (08:13)
[2019-08-13 08:30] VITALS: BP 147/78; PULSE 57; RESP 17; TEMP 97.8
[2019-08-13] MEDS ORDERED: SENNOSIDES-DOCUSATE SODIUM 1 EACH TAB PO PRN (09:01)
--- NOTE | 2019-08-13 09:07 | P.DS ---
Providers Date of admission: 08/08/19 10:43 Expected date of discharge: 08/13/19 Attending physician: Jose Romo Consults: 08/08/19 17:46 Consult Physician Routine Consulting Provider: Dev Dorsey Consult Reason/Comments: medical management Do you want consulting provider notified?: Yes Primary care physician: Kelli Busby - Discharge Diagnosis(es) (1) Lumbar spinal stenosis Current Visit: Yes Status: Acute (2) Lumbar degenerative disc disease Current Visit: Yes Status: Acute (3) Low back pain Current Visit: Yes Status: Acute (4) Radiculopathy with lower extremity symptoms Current Visit: Yes Status: Acute (5) Neurogenic claudication Current Visit: Yes Status: Acute (6) Hypertension Current Visit: Yes Status: Acute (7) Hyperlipidemia Current Visit: Yes Status: Acute (8) Unsteady gait Current Visit: Yes Status: Acute (9) History of lumbar fusion Current Visit: Yes Status: Acute (10) Status post lumbar spinal fusion Current Visit: Yes Status: Acute Priority: Medium Hospital Course: This is a very pleasant 59-year-old female who presented with L1 2, L2-3, and L3-4 spinal canal stenosis, adjacent level degenerative disc disease, low back pain with lower extremity radiculopathy and neurogenic claudication, and history of previous fusion L4-5 and L5-S1 who and failed outpatient conservative therapy. She was admitted for a minimally invasive posterior lateral decompression and fusion L1-2, L2-3, and L3-4 with extension to previous hardware at L4-5 and L5-S1 with placement of transforaminal lumbar interbody fusion L3-4. The patient tolerated the procedure well and did well postoperatively. She was initially progressing slowly postoperatively but has continued to improve. She has able to discontinue IV pain medication. Her symptoms have been better controlled with oral [place] and Flexeril. She is not currently complaining of any lower extremity radiculopathy bilaterally. She's been able to ambulate hallways with assistance of physical therapy. She feels her ambulation status has improved as compared to prior to surgical intervention. She has continued to have pain at the surgical sites. Condition on day of discharge stable. Patient will be discharged home. Patient was cleared preoperatively for surgery by Dr. Dorsey. Patient currently denies any nausea, vomiting, fever, or chills. Patient is eating and voiding freely without difficulty. Dressing is removed and physical examination. Patient does not have to have a dressing intact at this time. She may shower without a dressing. Patient should refrain from driving until at least after their first follow-up appointment in the office. Patient should avoid excessive bending, lifting, and twisting; no lifting greater than 10 pounds. Patient has not had a bowel movement postoperatively. She is passing gas and is not expressing any abdominal pain. She is not having any abdominal distention. We discussed that would prefer to have her have a bowel movement prior to discharge home. Patient has been receiving Senokot daily and milk of magnesia to help facilitate a bowel movement. We'll increase Senokot 2 twice a day. Patient does have a prescription for Senokot at home. We discussed she may take this medication as prescribed as needed for constipation. MAPS has been reviewed on 08/10/2019 with an Overall Overdose Risk Score of 200 and a narcotic score of 201. An "Opiod Start Talking" Form has been signed and placed in the patient's chart. A prescription has been written for [place] 5 mg/25 mg 1-2 tabs every 6 hours as needed for pain, dispensed #56. [facility]. Patient should avoid anti-inflammatory medication of the next 6 weeks postoperatively. Patient should discontinue tramadol medication as previously prescribed. She is also given prescriptions for Flexeril 10 mg 1 tab every 8 hours as needed for muscle spasm. Prescription is sent down to the [facility] pharmacy within the [facility]. Physical Exam on day of discharge: Status post surgical day number 5 Patient is awake, alert, and oriented 3 Vital signs stable Good chest excursion with deep inspiration and expiration Dorsiflexion, plantarflexion, and extensor hallucis longus positive sustained bilaterally No signs or symptoms of DVT; no calf pain; pneumatic cuffs intact bilateral lower extremities Dressing is intact; no erythema, purulence, or signs of infection Dressing is removed during physical examination; no active drainage from the surgical sites; no obvious sign of infection Some mild bruising around the surgical site Neurovascularly intact bilaterally lower extremities Procedures: Minimally invasive posterior lateral decompression and fusion L1-2, L2-3, and L3-4 with extension to previous hardware at L4-5 and L5-S1 with placement of transforaminal lumbar interbody fusion L3-4 Patient Condition at Discharge: Stable Plan - Discharge Summary Discharge Rx Participant: Yes New Discharge Prescriptions: New Hydrocodone/Acetaminophen [Humboldt 5-325] 1 - 2 each PO Q6HR PRN #56 tab PRN Reason: Pain Cyclobenzaprine [Flexeril] 10 mg PO TID PRN #90 tab PRN Reason: Muscle Spasm Continue Multivitamins, Thera [Multivitamin (formulary)] 1 tab PO DAILY Sertraline [Zoloft] 100 mg PO HS Albuterol Inhaler [Ventolin Hfa Inhaler] 1 - 2 puff INHALATION RT-Q6H PRN PRN Reason: Shortness Of Breath Lisinopril-Hctz 10-12.5 mg [Zestoretic 10-12.5] 1 tab PO QAM Lansoprazole 30 mg PO BID Cetirizine HCl [Zyrtec] 10 mg PO DAILY Fluticasone/Salmeterol [Advair 250-50 Diskus] 1 puff INHALATION BID Albuterol Nebulized [Ventolin Nebulized] 2.5 mg INHALATION RT-Q6H PRN PRN Reason: Shortness Of Breath Gabapentin [Neurontin] 600 mg PO HS Coratin 1 tab PO BID Mateo/D3/Mag11/Zinc/Sample Grinder/Vishnu/Bor [Caltrate 600+D Plus Tablet] 1 tab PO HS Benzonatate [Tessalon Perles] 200 mg PO TID PRN PRN Reason: Cough Orthovisc Injections +Steroids 1 injection IJ DIRECTED No Action traMADol HCL [Ultram] 50 mg PO BID PRN PRN Reason: Pain Ibuprofen [Motrin] 800 mg PO Q6H PRN PRN Reason: Pain Discharge Medication List Albuterol Inhaler [Ventolin Hfa Inhaler] 1 - 2 puff INHALATION RT-Q6H PRN 06/23/17 [History] Albuterol Nebulized [Ventolin Nebulized] 2.5 mg INHALATION RT-Q6H PRN 06/23/17 [History] Mateo/D3/Mag11/Zinc/Sample Grinder/Vishnu/Bor [Caltrate 600+D Plus Tablet] 1 tab PO HS 06/23/17 [History] Cetirizine HCl [Zyrtec] 10 mg PO DAILY 06/23/17 [History] Coratin 1 tab PO BID 06/23/17 [History] Fluticasone/Salmeterol [Advair 250-50 Diskus] 1 puff INHALATION BID 06/23/17 [History] Gabapentin [Neurontin] 600 mg PO HS 06/23/17 [History] Ibuprofen [Motrin] 800 mg PO Q6H PRN 06/23/17 [History] Lansoprazole 30 mg PO BID 06/23/17 [History] Lisinopril-Hctz 10-12.5 mg [Zestoretic 10-12.5] 1 tab PO QAM 06/23/17 [History] Multivitamins, Thera [Multivitamin (formulary)] 1 tab PO DAILY 06/23/17 [History] Sertraline [Zoloft] 100 mg PO HS 06/23/17 [History] traMADol HCL [Ultram] 50 mg PO BID PRN 06/23/17 [History] Benzonatate [Tessalon Perles] 200 mg PO TID PRN 08/02/19 [History] Orthovisc Injections +Steroids 1 injection IJ DIRECTED 08/02/19 [History] Hydrocodone/Acetaminophen [Humboldt 5-325] 1 - 2 each PO Q6HR PRN #56 tab 08/10/19 [Rx] Cyclobenzaprine [Flexeril] 10 mg PO TID PRN #90 tab 08/13/19 [Rx] Follow up Appointment(s)/Referral(s): Jose Romo DO [Doctor of Osteopathic Medicine] - 08/28/19 10:00 am (With Michele) [facility] [NON-STAFF] - [facility], [NON-STAFF] - Activity/Diet/Wound Care/Special Instructions: 1. Patient may shower without a dressing intact. 2. Patient should refrain from driving until at least after their first follow- up appointment in the office. 3. Patient should avoid excessive bending, twisting, and lifting; no lifting greater than 10 pounds 4. Take medications as prescribed 5. Do not soak in tub Discharge Disposition: HOME SELF-CARE
[2019-08-13] MEDS: POLYETHYLENE GLYCOL 3350 17 GM POWD.PACK PO PRN (09:34)
== END 2019-08-13 16:02 | disposition home health service (06) | DRG 454 ==
LOC: 2ORMAIN 10:43 → 4SSUR 18:23
PROVIDERS: ADMIT Orthopaedic Surgery Orthopaedic Surgery of the Spine; ATTEND Orthopaedic Surgery Orthopaedic Surgery of the Spine
PROC: 0SG0071 Fusion of Lumbar Vertebral Joint with Autologous Tissue Substitute, Posterior Approach, Posterior Column, Open Approach (ICD-10-PCS; 2019-08-08)
PROC: 0ST20ZZ Resection of Lumbar Vertebral Disc, Open Approach (ICD-10-PCS; 2019-08-08)
PROC: 0SG1071 Fusion of 2 or more Lumbar Vertebral Joints with Autologous Tissue Substitute, Posterior Approach, Posterior Column, Open Approach (ICD-10-PCS; 2019-08-08)
PROC: 0SG00AJ Fusion of Lumbar Vertebral Joint with Interbody Fusion Device, Posterior Approach, Anterior Column, Open Approach (ICD-10-PCS; principal; 2019-08-08 12:15)
DX: M48.062 Spinal stenosis, lumbar region with neurogenic claudication (principal); D80.3 Selective deficiency of immunoglobulin G [IgG] subclasses; Z68.41 Body mass index [BMI] 40.0-44.9, adult; E78.5 Hyperlipidemia, unspecified; G89.29 Other chronic pain; I10 Essential (primary) hypertension; J45.20 Mild intermittent asthma, uncomplicated; K21.9 Gastro-esophageal reflux disease without esophagitis; M51.16 Intervertebral disc disorders with radiculopathy, lumbar region; I83.90 Asymptomatic varicose veins of unspecified lower extremity; L71.9 Rosacea, unspecified; R26.81 Unsteadiness on feet; F32.9 Major depressive disorder, single episode, unspecified; M17.0 Bilateral primary osteoarthritis of knee; K76.89 Other specified diseases of liver; K59.03 Drug induced constipation; T40.2X5A Adverse effect of other opioids, initial encounter; E66.9 Obesity, unspecified; D50.9 Iron deficiency anemia, unspecified; Z88.1 Allergy status to other antibiotic agents; Z88.0 Allergy status to penicillin; Z86.010 Personal history of colon polyps; Z79.899 Other long term (current) drug therapy; Z87.01 Personal history of pneumonia (recurrent); Z90.49 Acquired absence of other specified parts of digestive tract; Z98.1 Arthrodesis status; Z80.7 Family history of other malignant neoplasms of lymphoid, hematopoietic and related tissues; Z80.3 Family history of malignant neoplasm of breast; Z80.41 Family history of malignant neoplasm of ovary; Z80.8 Family history of malignant neoplasm of other organs or systems; Z82.49 Family history of ischemic heart disease and other diseases of the circulatory system; Z82.61 Family history of arthritis; Z82.5 Family history of asthma and other chronic lower respiratory diseases
CPT/HCPCS: 72100; 80048; 85025; 85027; 86850; 86891; 86900; 86901; 94640